=== PATIENT | male | born 1985 | race Two or more races ===

== ENCOUNTER 2022-05-03 05:55 | Day surgery (SDC) | payer OTHER ==
[~2022-05-03] VITALS: Ht 177.8 cm; Wt 89.4 kg
[~2022-05-03 05:55] MED LIST: PROTONIX40 MG PO
== END 2022-05-03 13:20 | disposition home or self-care (01) ==
LOC: CIR.AMB 05:55
PROVIDERS: ATTEND Colon & Rectal Surgery
DX: K62.1 Rectal polyp (principal); Z86.010 Personal history of colon polyps; Z20.822 Contact with and (suspected) exposure to COVID-19